=== PATIENT | male | born 1990 | race African-American/Black ===

== ENCOUNTER 2017-04-20 12:12 | Emergency (ER) | payer SELFPAY ==
[~2017-04-20] VITALS: Ht 175.3 cm; Wt 75.0 kg
[2017-04-20] MEDS ORDERED: IBUPROFEN 600MG TABLET PO ONE (12:45)
[2017-04-20 14:36] VITALS: BP 118/84
== END 2017-04-20 14:37 | disposition home or self-care (01) ==
LOC: ER 12:23
DX: S20.219A Contusion of unspecified front wall of thorax, initial encounter (principal); S40.012A Contusion of left shoulder, initial encounter; V89.2XXA Person injured in unspecified motor-vehicle accident, traffic, initial encounter; Y93.89 Activity, other specified; Y92.89 Other specified places as the place of occurrence of the external cause; Y99.8 Other external cause status
CPT/HCPCS: 71010; 73030; 99284